=== PATIENT | female | born 1945 | race African-American/Black ===

== ENCOUNTER 2018-06-07 18:05 | Emergency (ER) | payer OTHER ==
[~2018-06-07] VITALS: Ht 157.5 cm; Wt 81.6 kg
[~2018-06-07 18:05] MED LIST: AMOX-CLAV 875-1 EACH; TRAM1TAB98
== END 2018-06-07 22:24 | disposition home or self-care (01) ==
LOC: ER 18:05
DX: J09.X2 Influenza due to identified novel influenza A virus with other respiratory manifestations (principal); R51 Headache; R10.13 Epigastric pain; B34.9 Viral infection, unspecified

== ENCOUNTER 2023-04-11 12:32 | Emergency (ER) | payer OTHER ==
[~2023-04-11] VITALS: Ht 157.5 cm; Wt 93.4 kg
[2023-04-11] MEDS ORDERED: DIOVAN320 MG PO (13:18)
[2023-04-11] MEDS ORDERED: TAMS0.4C PO (13:19)
[2023-04-11] MEDS ORDERED: ZOCOR20 MG PO (13:19)
[2023-04-11] MEDS ORDERED: LEXAPRO5 MG PO (13:19)
[2023-04-11 16:02] LABS: HEMATOCRIT 34.3 % (36.0-45.00); HEMOGLOBIN 11.5 g/dL (12.0-15.00); MEAN CELL VOLUME 94.6 fL (80.00-100.00); MEAN CORPUSCULAR HEMOGLOBIN 31.8 pg (27.00-32.0); MEAN CORPUSCULAR HGB CONC 33.6 g/dl (32.0-36.0); PLATELET COUNT 234 K/uL (150-450); RED BLOOD COUNT 3.62 M/uL (4.00-6.00)
[2023-04-11 16:05] LABS: PH,URINE 5.5 (5.0-8.0); URINE APPEARANCE Clear; URINE BILIRRUBIN Negative (NEGATIVE); URINE BLOOD Negative; URINE COLOR Yellow; URINE GLUCOSE Negative (NEGATIVE); URINE LEUKOCYTE Moderate; URINE NITRATE Negative; URINE PROTEIN Negative (NEGATIVE)
[2023-04-11 16:08] LABS: URINE BACTERIA 381.7 uL (0.0-1933); URINE EPITHELIAL CELLS 19.9 uL (0.0-38.8); URINE RBC 22.8 uL (0.0-20.8); URINE WBC 243.1 uL (0.0-23.2)
[2023-04-11 16:33] LABS: CALCIUM 9.6 mg/dL (8.5-10.1); CREATININE SERUM 0.89 mg/dL (0.55-1.02); GFR 61.34; POTASSIUM 4.11 mEq/L (3.5-5.1)
== END 2023-04-11 21:37 | disposition home or self-care (01) ==
LOC: ER 12:32
PROVIDERS: General Practice
DX: N39.0 Urinary tract infection, site not specified (principal); I10 Essential (primary) hypertension
CPT/HCPCS: 36415; 74176; 96365; 99284; J0696; J1885